=== PATIENT | male | born 1945 | race Caucasian/White ===

== ENCOUNTER 2017-08-21 09:58 | Outpatient (CLI) | payer MEDICARE ==
[2017-08-21 10:41] LABS: Anion Gap 17 mmol/L (10-20); BUN (Urea Nitrogen) 18 mg/dL (8.4-25.7); Calc. Creatinine Clearance 0 mL/min (70-130); Calcium 9.8 mg/dL (7.8-10.44); Carbon Dioxide 26 mmol/L (23-31); Chloride 101 mmol/L (98-107); Estimated GFR-MDRD 88
--- NOTE | 2017-08-21 13:22 | RAD ---
IVP: HISTORY: A 71-year-old male with microhematuria. COMPARISON: CT scan from 09/26/2016. 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 Following contrast injection, there is prompt bilatera l equal excretion. The visualized renal outlines, upper collecting systems, and ureters are unremark able. No evidence for acute obstruction. The bladder appears unremarkable. No significant post void residual. IMPRESSION: Unremarkable intravenous pyelogram. Stable appearance from 09/26/2016. POS: SONIA
== END 2017-08-21 09:59 | disposition home or self-care (01) ==
LOC: RAD 09:58
PROVIDERS: ATTEND Urology
DX: Z12.5 Encounter for screening for malignant neoplasm of prostate (principal); N20.0 Calculus of kidney; R82.8 Abnormal findings on cytological and histological examination of urine; R31.29 Other microscopic hematuria
CPT/HCPCS: 74410; 80048; 87086; G0103; 36415

== ENCOUNTER 2019-03-10 10:48 | Outpatient (CLI) | payer MEDICARE ==
--- NOTE | 2019-03-10 11:25 | ULT ---
Exam: Bilateral renal ultrasound complete: HISTORY: Renal calculi gross hematuria COMPARISON: CT, 09/26/2016 FINDINGS: Right kidney: 11.3 x 6.7 x 6.0 cm. Left kidney: 11.5 x 6.3 x 6 cm. No renal hydronephrosis. No evidence for abnormal perinephric process. No solid or cystic renal mass. Unremarkable appearing bladder. Incidental note of somewhat prominent vascularity at the liver hilum, incompletely seen and incomplet juve evaluated and of unknown significance. IMPRESSION: Unremarkable bilateral renal ultrasound. No hydronephrosis or perinephric process.
--- NOTE | 2019-03-10 11:33 | RAD ---
EXAM: XR Abdomen 1 View/KUB PROVIDED CLINICAL HISTORY: Renal calculi. COMPARISON: IVP on 08/21/2017. FINDINGS: There is suggestion of a punctate calcification overlies but location the right renal pelvis which is difficult to further localize. Renal shadows are mostly obscured by overlying bowel gas. No definite additional suspicious calcifications are seen. Medications are seen overlying the pelvis als o noted on the prior examination are likely related to phleboliths. There are increased density foci overlying the sacrum bilaterally as well as involving each iliac bone also noted on prior CT abd omen and pelvis on 09/26/2016 and more suggestive of bone islands. Degenerative changes are seen in the lower thoracic as well as involving the lumbar spine. IMPRESSION: Single punctate calcification overlying right upper quadrant which overlies expected location right r enal pelvis, but this is difficult to further localize. No definite additional suspicious calcifications are seen. Each renal shadow is mostly obscured by overlying bowel gas.
== END 2019-03-10 10:49 | disposition home or self-care (01) ==
LOC: ULT 10:48
PROVIDERS: ATTEND Urology
DX: N40.1 Benign prostatic hyperplasia with lower urinary tract symptoms (principal); N20.0 Calculus of kidney; R31.29 Other microscopic hematuria; R81 Glycosuria
CPT/HCPCS: 36415; 74018; 76770; 80048; 81001; 87086

== ENCOUNTER 2019-05-05 10:05 | Outpatient (CLI) | payer MEDICARE ==
--- NOTE | 2019-05-05 12:20 | RAD ---
KUB: 05/05/2019 COMPARISON: 03/10/2019 HISTORY: Renal colic FINDINGS: Faint punctate calcification noted in the right upper quadrant measuring in the 2 mm range, unchanged. This could represent a tiny stable right renal stone. No additional calcifications overlie the upper abdomen. Stable calcific densities overlie the sacrum bilaterally as well as within the left hemipelvis. The bowel gas pattern appears nonobstructed. Stable degenerative changes are noted within the spine. IMPRESSION: Stable KUB.
== END 2019-05-05 10:06 | disposition home or self-care (01) ==
LOC: RAD 10:05
PROVIDERS: ATTEND Urology
DX: N20.0 Calculus of kidney (principal)
CPT/HCPCS: 74018; 80048; 81001; G0103; 36415

== ENCOUNTER 2019-06-25 09:19 | Outpatient (CLI) | payer MEDICARE ==
[2019-06-25 11:16] LABS: Hemoglobin 15.2 g/dL (14.0-18.0); Mean Corpuscular HGB CONC 35.1 g/dL (32.0-36.0); Mean Corpuscular Hemoglobin 32.2 pg (27.0-31.0); Mean Corpuscular Volume 91.9 fL (78.0-98.0); Mean Platelet Volume 7.4 fL (7.4-10.4); Platelet Count 261 thou/uL (130-400); Red Blood Cell (RBC) Count 4.71 mill/uL (4.70-6.10); White Blood Cell (WBC) Count 7.7 thou/uL (4.8-10.8)
[2019-06-25 11:24] LABS: PTT 29.6 SEC (22.9-36.1); Prothrombin Time 13.2 SEC (12.0-14.7)
[2019-06-25 11:34] LABS: Bacteria/HPF None Seen HPF (None Seen); Bilirubin Negative (Negative); Blood, Urine Negative (Negative); Clarity Clear (Clear); Glucose, Urine (Dipstick) 300 mg/dL (Negative); Leukocyte Negative Leu/uL (Negative); Nitrite Negative (Negative); Protein, Urine (Dipstick) Negative (Neg-Trace); RBC/HPF 0-3 HPF (0-3); Squamous Epithelial None Seen HPF (0-3); Urobilinogen Normal mg/dL (Less than 2); WBC/HPF 0-3 HPF (0-3)
[2019-06-25 11:36] LABS: Anion Gap 12 mmol/L (10-20); BUN (Urea Nitrogen) 24 mg/dL (8.4-25.7); Calc. Creatinine Clearance 0 mL/min (70-130); Calcium 9.7 mg/dL (7.8-10.44); Carbon Dioxide 25 mmol/L (23-31); Chloride 104 mmol/L (98-107); Estimated GFR-MDRD 87; Glucose 159 mg/dL (83-110); Potassium 4.3 mmol/L (3.5-5.1); Sodium 137 mmol/L (136-145)
--- NOTE | 2019-06-26 23:22 | EKG ---
Test Reason : Blood Pressure : / mmHG Vent. Rate : 069 BPM Atrial Rate : 069 BPM P-R Int : 172 ms QRS Dur : 084 ms QT Int : 396 ms P-R-T Axes : 046 005 034 degrees QTc Int : 424 ms Sinus rhythm with marked sinus arrhythmia Otherwise normal ECG When compared with ECG of 22-NOV-2016 11:03, No significant change was found Confirmed by Janet BEDOLLA ([id number]) on 06/26/2019 11:22:04 PM Referred By: LEXY Confirmed By:Janet BEDOLLA
== END 2019-06-25 09:20 | disposition home or self-care (01) ==
LOC: LABBT 09:19
PROVIDERS: ATTEND Urology
DX: Z01.818 Encounter for other preprocedural examination (principal); N40.1 Benign prostatic hyperplasia with lower urinary tract symptoms
CPT/HCPCS: 80048; 81001; 85027; 85610; 85730; 87086; 93005; 93010

== ENCOUNTER 2019-07-09 05:40 | Day surgery (SDC) | payer MEDICARE ==
[2019-06-25 09:42] VITALS: BMI 24.6
[2019-07-09] MEDS ORDERED: Levofloxacin 500 mg/D5W 100 ml Premix Bag ONE (06:35)
[2019-07-09] MEDS ORDERED: Fentanyl 100 MCG/2 ML VIAL ONE (06:54)
[2019-07-09] MEDS ORDERED: Oxybutynin 5 MG TAB ONE (08:33)
[2019-07-09] MEDS ORDERED: Phenazopyridine HCl 97.5 MG TABLET ONE (08:34)
--- NOTE | 2019-07-09 10:07 | OP ---
DATE OF PROCEDURE: 07/09/2019 PREOPERATIVE DIAGNOSES: 1. A 73-year-old male with history of benign prostatic hypertrophy. 2. History of bulbar urethral stricture. POSTOPERATIVE DIAGNOSES: 1. A 73-year-old male with history of benign prostatic hypertrophy. 2. History of bulbar urethral stricture. PROCEDURES PERFORMED: 1. Cystoscopy. 2. UroLift implant x5. 3. Direct vision internal urethrotomy of bulbar urethral stricture. 4. A 16-Nigerian 10 mL urethral Knowles catheter placement to gravity leg bag. ANESTHESIA: LMA. COMPLICATIONS: None apparent. DISPOSITION: To recovery room in stable condition. INTRAOPERATIVE FINDINGS: 1. Persistent bulbar urethral stricture, requiring DVIU. 2. Bilobar hyperplasia of the prostate. INDICATIONS FOR PROCEDURE AND HISTORY: Mr. Jonas is a 73-year-old male with history of BPH. He has been on dual medical therapy for numerous years and desires to discontinue medication, and alternatively we discussed options of UroLift, which he desires to proceed. Cystoscopy demonstrated urethral stricture, advised regarding concomitant treatment. Risks and complications and indications were reviewed including, but not limited to, bleeding, pain, infection, injury to adjacent organs, migration of UroLift requiring secondary procedure, urethral bladder stone, chronic pain, injury to adjacent organs, recurrent nature of stricture disease were reviewed with him in detail and he desired to proceed. DESCRIPTION OF PROCEDURE: After an informed consent was signed, the patient was taken to the operating room, placed in a dorsal lithotomy position with the genital area prepped and draped in the usual surgical sterile fashion. A 21-Nigerian cystoscope was utilized to stage his urethra. Again noted his bulbar urethra about 16-Nigerian caliber. I was able to pass the scope in and out without difficulty. Again, demonstrating his bilobar hyperplasia with no evidence of intravesical median lobe. The UOs were identified about 3 mm proximal to the bladder neck with no median lobe. At this time, we passed a 20-Nigerian 0-degree UroLift apparatus. The first implant was placed on the left side and we subsequently placed a total of 5, stacking the last 5th one on the right lateral lobe to create an open anterior channel. Intraoperative photos were taken. He tolerated the procedure well. Repeat cystoscopy demonstrated no evidence of foreign body in the bladder neck or the bladder mucosa. Care was taken to stay 1.5 cm at least proximal to the bladder neck. We re-staged his urethra, this demonstrated persistent annular narrowing. Therefore, decision was made to perform direct vision internal urethrotomy with a cold knife. Using a 21-Nigerian [employer] visual broom machine operator, we passed the DVIU scope to the level of the bulbar stricture. A 12 o'clock incision was made. However, there was persistent narrowing, so we did make a 2nd cut at 10 and 2 o'clock, releasing the annular band. I was able to pass a 16-Nigerian regular Knowles catheter without significant issues to the level of the bladder. 10 mL was insufflated. This was attached to gravity leg bag and he tolerated the procedure well. He will follow up with me next for a voiding trial. He is instructed to continue his BPH medications for now, he is discharged with ciprofloxacin 500 mg one p.o. b.i.d. for 10 days, Azo, tramadol 50 mg #30 one to two p.o. q.6 h. p.r.n. Job ID: [id number]
== END 2019-07-09 10:00 | disposition home or self-care (01) ==
LOC: SDC 05:40
PROVIDERS: ATTEND Urology
PROC: 0TND8ZZ Release Urethra, Via Natural or Artificial Opening Endoscopic (ICD-10-PCS; principal; 2019-07-09)
PROC: 0T7D8DZ Dilation of Urethra with Intraluminal Device, Via Natural or Artificial Opening Endoscopic (ICD-10-PCS; 2019-07-09)
DX: N40.0 Benign prostatic hyperplasia without lower urinary tract symptoms (principal); N35.912 Unspecified bulbous urethral stricture, male; Z79.84 Long term (current) use of oral hypoglycemic drugs; Z79.899 Other long term (current) drug therapy; Z88.8 Allergy status to other drugs, medicaments and biological substances; Z91.041 Radiographic dye allergy status
CPT/HCPCS: 52276; C9740; C1889; J1956; J3010

== ENCOUNTER 2022-02-27 09:55 | Outpatient (CLI) | payer MEDICARE | END 2022-02-27 09:56 | disposition home or self-care (01) | LOC: NM 09:55 | PROVIDERS: ATTEND Urology | DX: M85.00 Fibrous dysplasia (monostotic), unspecified site (principal) | CPT/HCPCS: 78306; A9503 ==

== ENCOUNTER 2023-10-11 08:27 | Outpatient (CLI) | payer MEDICARE | END 2023-10-11 08:28 | disposition home or self-care (01) | LOC: BICRAD 08:27 | PROVIDERS: ATTEND Urology | DX: N20.0 Calculus of kidney (principal); K59.00 Constipation, unspecified | CPT/HCPCS: 36415; 74018; 80048; 81001; 83036; 87086 ==

== ENCOUNTER 2023-11-08 07:50 | Outpatient (CLI) | payer MEDICARE | END 2023-11-08 07:51 | disposition home or self-care (01) | LOC: BICULT 07:50 | PROVIDERS: ATTEND Urology | DX: N40.1 Benign prostatic hyperplasia with lower urinary tract symptoms (principal); N20.0 Calculus of kidney; N39.43 Post-void dribbling | CPT/HCPCS: 76770 ==